=== PATIENT | male | born 1960 | race Caucasian/White ===

== ENCOUNTER 2023-05-13 14:35 | Emergency (ER) | payer BC, OTHER ==
[~2023-05-13] VITALS: Ht 177.8 cm; Wt 83.0 kg
[~2023-05-13 14:35] MED LIST: ATOR10TA PO; LISI10TA26 PO; METO-539 PO
[2023-05-13 14:45] VITALS: O2SAT 96
[2023-05-13] MEDS ORDERED: TETANUS, DIPHTHERIA, PERTUSSIS VAC/PF 0.5ML (>10YR OLD) IM ONE (15:15)
[2023-05-13] MEDS: TETANUS, DIPHTHERIA, PERTUSSIS VAC/PF 0.5ML (>10YR OLD) IM ONE (18:18)
[2023-05-13] MEDS: LIDOCAINE HCL/PF 1% 10 MG/ML 5ML VIAL INFIL ONE (18:19)
[2023-05-13] MEDS: ACETAMINOPHEN 325MG TABLET PO ONE (18:19)
[2023-05-13] MEDS: LIDOCAINE HCL/PF 1% 10 MG/ML 5ML VIAL INFIL NR (18:20)
[2023-05-13] MEDS: ACETAMINOPHEN 325MG TABLET PO NR (18:20)
[2023-05-13 18:45] VITALS: BP 167/91; PULSE 83; RESP 16; TEMP 98.2
== END 2023-05-13 18:50 | disposition home or self-care (01) ==
LOC: ER 14:35
DX: S01.01XA Laceration without foreign body of scalp, initial encounter (principal); I10 Essential (primary) hypertension; Z98.890 Other specified postprocedural states; X58.XXXA Exposure to other specified factors, initial encounter; Y93.89 Activity, other specified; Y92.89 Other specified places as the place of occurrence of the external cause; Y99.8 Other external cause status
CPT/HCPCS: 70450; 90715; 12001; 90471; 99285; Z7610 ×3